=== PATIENT | female | born 1935 | race African-American/Black ===

== ENCOUNTER 2021-01-20 13:50 | Inpatient (IN) ==
[2021-01-20] MEDS ORDERED: ALBUTEROL 2.5 MG/3 ML NEB RESP TX PRN (17:14)
[2021-01-20] MEDS ORDERED: ACETAMINOPHEN 325 MG TABLET PO PRN (17:15)
[2021-01-20] MEDS ORDERED: NOREPINEPHRINE 8 MG in SODIUM CHLORIDE 0.9% 242 ML IV PRN (17:15)
[2021-01-20] MEDS ORDERED: ONDANSETRON 4 MG/2 ML VIAL IV PRN (17:15)
[2021-01-20] MEDS ORDERED: BISACODYL 5 MG TABLET PO PRN (17:15)
[2021-01-20 18:13] LABS: Basophils % 0.7 % (0.0-0.8); Eosinophils # 0.1 10*3/uL (0.0-0.87); Hematocrit 36.6 VOL% (35.7-47.0); Hemoglobin 11.8 GM/DL (12.0-16.0); Immature Granulocytes % 0.4 %; Immature Granulocytes Absolute 0.02 #; Lymphocytes # 1.4 10*3/uL (1.4-4.0); Lymphocytes % 29.7 % (21.3-54.2); Mean Corpuscular HGB Conc 32.2 GM/DL (32-36); Mean Corpuscular Volume 98.1 FL (87-102); Mean Platelet Volume 10.2 FL (9.6-12.0); Neutrophils % 58.2 % (38.7-73.9); Platelet Count 208 T/CUMM (130-400); Red Blood Count 3.73 MC/CUMM (3.8-5.5); Red Cell Distribution Width 13.2 % (9.3-17.3); White Blood Count 4.6 T/CUMM (4-12)
[2021-01-20 18:41] LABS: Calcium 8.2 MG/DL (8.5-10.1); Osmolality,Calculated 290.3 MOS/KG (273-304); Potassium 3.4 MMOL/L (3.5-5.1)
[2021-01-20] MEDS: APIXABAN 2.5 MG TABLET PO SCH (20:42)
[2021-01-20 21:15] LABS: Atypical Lymphocytes Few
[2021-01-20 22:47] LABS: Bilirubin,Urine Negative (Negative); Blood, Urine Negative (Negative); Glucose,Urine (UA) Negative (Negative); Hyaline Casts,Urine 4 /LPF (0-3); Ketones,Urine Negative (Negative); Nitrite,Urine Negative (Negative); Protein,Urine Negative; RBC,Urine 1 /HPF (0-4); Squamous Epithelial Cell,Urine Occasional /HPF (0-10); Urine Appearance CLEAR (Clear); Urine Color Yellow (Yellow); Urine Urobilinogen < 2.0 EU/DL (0.2-1.0)
[2021-01-21 02:22] LABS: Basophils % 0.8 % (0.0-0.8); Eosinophils # 0.1 10*3/uL (0.0-0.87); Eosinophils % 2.6 % (0.00-10.9); Hematocrit 41.3 VOL% (35.7-47.0); Hemoglobin 12.5 GM/DL (12.0-16.0); Immature Granulocytes % 0.3 %; Immature Granulocytes Absolute 0.01 #; Lymphocytes # 1.3 10*3/uL (1.4-4.0); Lymphocytes % 34.3 % (21.3-54.2); Mean Corpuscular HGB Conc 30.3 GM/DL (32-36); Mean Corpuscular Volume 105.9 FL (87-102); Mean Platelet Volume 11.6 FL (9.6-12.0); Monocytes % 9.2 % (1.7-12.7); Neutrophils % 52.8 % (38.7-73.9); Platelet Count 153 T/CUMM (130-400); White Blood Count 3.9 T/CUMM (4-12)
[2021-01-21 03:29] LABS: Calcium 8.3 MG/DL (8.5-10.1); Free T4 (Free Thyroxine) 1.34 NG/DL (0.76-1.46); Osmolality,Calculated 290.1 MOS/KG (273-304); Potassium 3.6 MMOL/L (3.5-5.1); Thyroid Stimulating Hormone 3.89 uIU/ml (0.358-3.74)
[2021-01-21] MEDS: APIXABAN 2.5 MG TABLET PO SCH ×2 (08:56→20:31)
[2021-01-21] MEDS ORDERED: ERGOCALCIFEROL 50,000 UNIT CAPSULE PO SCH (09:00)
[2021-01-21] MEDS ORDERED: PANTOPRAZOLE 40 MG TABLET PO SCH (09:00)
[2021-01-21] MEDS ORDERED: SODIUM CHLORIDE 0.9% 500 ML IV ONE ×3 (10:18→12:34)
[2021-01-21] MEDS ORDERED: SODIUM CHLORIDE 0.9% 1,000 ML IV SCH (10:30)
[2021-01-21] MEDS: SIMVASTATIN 10 MG TABLET PO SCH (14:10)
[2021-01-21] MEDS ORDERED: METOPROLOL TARTRATE 5 MG/5 ML VIAL IV ONE (17:48)
[2021-01-21] MEDS: METOPROLOL TARTRATE 25 MG TABLET PO SCH (17:57)
[2021-01-21] MEDS: MEMANTINE 10 MG TABLET PO SCH (20:31)
[2021-01-22] MEDS: ASPIRIN CHEW 81 MG TABLET PO SCH (13:49)
[2021-01-22] MEDS: MEMANTINE 10 MG TABLET PO SCH ×2 (13:49→20:26)
[2021-01-22] MEDS: APIXABAN 2.5 MG TABLET PO SCH ×2 (13:49→20:25)
[2021-01-22] MEDS: METOPROLOL TARTRATE 25 MG TABLET PO SCH ×2 (13:49→20:25)
[2021-01-22] MEDS: SIMVASTATIN 10 MG TABLET PO SCH (13:49)
[2021-01-22 17:05] LABS: Basophils % 0.9 % (0.0-0.8); Eosinophils # 0.2 10*3/uL (0.0-0.87); Hematocrit 35.2 VOL% (35.7-47.0); Hemoglobin 11.2 GM/DL (12.0-16.0); Immature Granulocytes % 0.6 %; Immature Granulocytes Absolute 0.02 #; Lymphocytes # 1.4 10*3/uL (1.4-4.0); Lymphocytes % 40.5 % (21.3-54.2); Mean Corpuscular HGB Conc 31.8 GM/DL (32-36); Mean Corpuscular Volume 99.2 FL (87-102); Mean Platelet Volume 9.7 FL (9.6-12.0); Monocytes % 11.1 % (1.7-12.7); Neutrophils % 41.9 % (38.7-73.9); Platelet Count 244 T/CUMM (130-400); Red Blood Count 3.55 MC/CUMM (3.8-5.5); Red Cell Distribution Width 13.2 % (9.3-17.3); White Blood Count 3.4 T/CUMM (4-12)
[2021-01-22 17:36] LABS: Calcium 8.8 MG/DL (8.5-10.1); High Sensitive Troponin I* 34.1 ng/L (0-54); Osmolality,Calculated 283.3 MOS/KG (273-304); Potassium 3.8 MMOL/L (3.5-5.1)
[2021-01-22 19:16] LABS: Atypical Lymphocytes Few; Band Neutrophils 1 % (0-10); Eosinophils 1 % (0-10); Lymphocytes 36 % (20-55); Ovalocytes Few; Platelet Estimate Normal; Polychromasia Few; Segmented Neutrophils 53 % (50-85); Total Cells Counted 100
[2021-01-23 06:32] LABS: Basophils % 0.6 % (0.0-0.8); Eosinophils # 0.2 10*3/uL (0.0-0.87); Eosinophils % 4.9 % (0.00-10.9); Hematocrit 33.9 VOL% (35.7-47.0); Hemoglobin 10.8 GM/DL (12.0-16.0); Immature Granulocytes % 0.6 %; Immature Granulocytes Absolute 0.02 #; Lymphocytes # 1.4 10*3/uL (1.4-4.0); Lymphocytes % 39.8 % (21.3-54.2); Mean Corpuscular HGB Conc 31.9 GM/DL (32-36); Monocytes % 8.6 % (1.7-12.7); Neutrophils % 45.5 % (38.7-73.9); Platelet Count 239 T/CUMM (130-400); Red Blood Count 3.39 MC/CUMM (3.8-5.5); Red Cell Distribution Width 13.3 % (9.3-17.3); White Blood Count 3.5 T/CUMM (4-12)
[2021-01-23 06:57] LABS: Hypochromasia Slight
[2021-01-23 06:58] LABS: Microcytosis Slight; Platelet Estimate Adequate
[2021-01-23 07:06] LABS: Calcium 8.7 MG/DL (8.5-10.1); Potassium 3.6 MMOL/L (3.5-5.1)
[2021-01-23] MEDS: APIXABAN 2.5 MG TABLET PO SCH (09:29)
[2021-01-23] MEDS: ASPIRIN CHEW 81 MG TABLET PO SCH (09:29)
[2021-01-23] MEDS: MEMANTINE 10 MG TABLET PO SCH (09:29)
[2021-01-23] MEDS: METOPROLOL TARTRATE 25 MG TABLET PO SCH (09:29)
[2021-01-23 12:15] VITALS: BP 132/89
[2021-01-23] MEDS ORDERED: SIMVASTATIN 10 MG TABLET PO SCH (21:00)
== END 2021-01-23 15:00 | disposition home health service (06) | DRG 312 ==
LOC: N.CC 17:02 → SUATTDRO 17:02 → N.3E 01-21 14:28
PROVIDERS: ADMIT Internal Medicine; ATTEND Internal Medicine